=== PATIENT | female | born 1955 | race African-American/Black ===

== ENCOUNTER → 2016-10-30 | Outpatient (CLI) | payer OTHER ==
--- NOTE | 2016-10-30 10:10 | US ---
EXAMINATION TYPE: US pelvic complete DATE OF EXAM: 10/30/2016 9:50 AM COMPARISON: No previous CLINICAL HISTORY: Post menopausal bleeding x 2 weeks, cramping, 1, para 2: twins. TECHNIQUE: Transvaginal (TV) and Transabdominal (TA) Date of LMP: 2010 EXAM MEASUREMENTS: Uterus: 10.0 x 7.3 x 5.9cm Endometrial Stripe: not seen Right Ovary: not seen Left Ovary: not seen TECHNOLOGIST IMPRESSION: 1. Uterus: Anteverted, bulky, heterogeneous with multiple hypoechoic lesions throughout with largest measuring 4.6 x 4.1 x 3.9cm 2. Endometrium: unable to visualize due to shadowing and distortion from uterine lesions 3. Right Ovary: not seen due to overlying bowel 4. Left Ovary: not seen due to overlying bowel 5. Bilateral Adnexa: wnl 6. Posterior cul-de-sac: wnl IMPRESSION: 1. Poorly visualized pelvic ultrasound. Endometrial stripe could not be measured. Uterus appears bulk y. The ovaries are not identified. 2. Uterine fibroids largest measuring 4 cm discussed above. Normal Values: Uterine Length: < 10cm Endometrium: Proliferative (Day 6 ? 14): 4 ? 6mm [place] (Day 15 ? 28): 7 ? 14mm Post Menopausal (and not symptomatic): up to 8mm Post Menopausal (with vaginal bleeding): upper limits <5mm Post Menopausal with HRT: upper limits 8 - 15mm Post Menopausal with tamoxifen: < 6mm (although 50% of those receiving tamoxifen have been reported t o have thickness >8mm)
== END | disposition home or self-care (01) ==
LOC: RADUSWWP 09:28
PROVIDERS: ATTEND Family Medicine
DX: D25.9 Leiomyoma of uterus, unspecified (principal); N93.9 Abnormal uterine and vaginal bleeding, unspecified
CPT/HCPCS: 76830; 76856

== ENCOUNTER 2017-03-14 07:32 | Day surgery (SDC) | payer OTHER ==
--- NOTE | 2017-03-07 21:14 | P.GSHP ---
History of Present Illness H&P Date: 03/07/17 Chief Complaint: Chronic cholecystitis Patient presents to the office with complaints of right upper quadrant pain. She has had intermittent attacks been increasing in severity. She had an ultrasound performed showing a 1.5 cm gallstone. Pain is primarily right- sided. She does have nausea and vomiting. She is taking [place] for the pain currently. Pain is occurring almost daily. She is also concerned about a possible upper abdominal wall hernia. No change in the color of her skin urine or stool. Recent labs show normal liver enzymes. Past Medical History Past Medical History: Asthma, Liver Disease, Vascular Disorder Additional Past Medical History / Comment(s): Hepatitis C History of Any Multi-Drug Resistant Organisms: None Reported Past Surgical History: Ear Surgery, Tonsillectomy, Tubal Ligation Additional Past Surgical History / Comment(s): reconstructive surgery right ear. Cone biopsy. Barbara anal fistula repaired. Past Anesthesia/Blood Transfusion Reactions: Previous Problems w/ Anesthesia Additional Past Anesthesia/Blood Transfusion Reaction / Comment(s): Cardiac arrest during surgery. States allergic to anesthesia Past Psychological History: No Psychological Hx Reported Smoking Status: Former smoker Past Alcohol Use History: Abuse Additional Past Alcohol Use History / Comment(s): states stopped drinkng age 45. Past Drug Use History: Heroin Additional Drug Use History / Comment(s): states stopped using age 26 - Past Family History Mother Family Medical History: Congestive Heart Failure (CHF), Diabetes Mellitus Additional Family Medical History / Comment(s): states of CHF age 74 Father Family Medical History: Diabetes Mellitus Additional Family Medical History / Comment(s): age 45 cause unknown to patient. Medications and Allergies Home Medications Medication Instructions Recorded Confirmed Type Albuterol Sulfate [Proair 2 puff PO Q4HR PRN 11/08/16 11/22/16 History Respiclick] Ibuprofen [Motrin] 600 mg PO Q8HR 11/08/16 11/22/16 History Loratadine [Claritin] 10 mg PO DAILY 11/08/16 11/22/16 History Allergies Allergy/AdvReac Type Severity Reaction Status Date / Time iodine Allergy Rash/Hives Verified 11/22/16 11:36 Latex, Natural Rubber Allergy Itching Verified 11/22/16 11:36 shellfish derived Allergy Rash/Hives Verified 11/22/16 11:36 anesthesia AdvReac Unknown Uncoded 11/22/16 11:36 Surgical - Exam GENERAL: Well-developed, well-nourished HEENT: Normocephalic, sclera nonicteric, EOM intact, no swelling CHEST: No deformities ABDOMEN: Soft, nontender, nondistended, Questionable soft fleshy mass in the upper midabdomen possible lipoma versus hernia EXTREMITIES: No deformities, motor grossly intact NEURO: Awake and alert Assessment and Plan (1) Chronic cholecystitis Narrative/Plan: We'll proceed with laparoscopic cholecystectomy on 03/14. The risks of bleeding , infection, bile duct injury, biloma formation, bowel injury, retained common bile duct stone, and conversion to an open procedure were discussed. She understands and wishes to proceed. Status: Acute
[2017-03-11 10:50] VITALS: BMI 32.8
[~2017-03-14 07:32] MED LIST: LACTATED RINGERS 1,000 ML IV SCH
[2017-03-14 09:16] VITALS: TEMP 98.7
[2017-03-14] MEDS ORDERED: LIDOCAINE 1% INJ 10MG/ML (20 ML MDV) ONE (09:40)
[2017-03-14] MEDS ORDERED: fentaNYL (PF) 50 MCG/ML 2 ML AMP ONE (09:40)
[2017-03-14] MEDS ORDERED: PROPOFOL 10 MG/ML 20 ML VIAL IV ONE (09:40)
--- NOTE | 2017-03-14 09:43 | P.GSHP ---
History of Present Illness H&P Date: 03/14/17 Chief Complaint: Colon cancer screening Patient here today for colonoscopy. No bowel related complaints. She has a family history of colon cancer and an uncle. Has never had a colonoscopy. She did have a flexible sigmoidoscopy 25 years ago that was normal. Past Medical History Past Medical History: Asthma, Liver Disease, Vascular Disorder Additional Past Medical History / Comment(s): Hepatitis C,varicose veins, leg ulcers-healed,constipation History of Any Multi-Drug Resistant Organisms: None Reported Past Surgical History: Ear Surgery, Tonsillectomy, Tubal Ligation Additional Past Surgical History / Comment(s): reconstructive surgery right ear. Cone biopsy. Judd anal fistula repaired,vericose veins,D&C Past Anesthesia/Blood Transfusion Reactions: Previous Problems w/ Anesthesia Additional Past Anesthesia/Blood Transfusion Reaction / Comment(s): states "heart stopped during judd anal fistula repair, States was told by Anesthesiologist may have been an reaction to anesthesia" Past Psychological History: No Psychological Hx Reported Smoking Status: Former smoker Past Alcohol Use History: Abuse Additional Past Alcohol Use History / Comment(s): states stopped drinkng age 45.quit smoking Jun-smoked approx 33 yrs <1ppd Past Drug Use History: Heroin Additional Drug Use History / Comment(s): states stopped using age 26 - Past Family History Mother Family Medical History: Congestive Heart Failure (CHF), Diabetes Mellitus Additional Family Medical History / Comment(s): states of CHF age 74 Father Family Medical History: Diabetes Mellitus Additional Family Medical History / Comment(s): age 45 cause unknown to patient. Medications and Allergies Home Medications Medication Instructions Recorded Confirmed Type Albuterol Sulfate [Proair 2 puff PO Q4HR PRN 11/08/16 03/14/17 History Respiclick] Ibuprofen [Motrin] 600 mg PO Q8HR 11/08/16 03/11/17 History Allergies Allergy/AdvReac Type Severity Reaction Status Date / Time apricot Allergy lips Verified 03/14/17 09:11 turned dark purple and rash in throat Fish Containing Products Allergy lips Verified 03/14/17 09:11 turned dark purple and rash throat iodine Allergy lips Verified 03/14/17 09:11 turned dark purple and rash in throat Latex, Natural Rubber Allergy Itching Verified 03/14/17 09:11 perfume Allergy Rash/Hives Verified 03/14/17 09:11 petrolatum,white Allergy Rash/Hives Verified 03/14/17 09:11 [From Petroleum Jelly] shellfish derived Allergy lips Verified 03/14/17 09:11 turned dark purple and rash in throat detergents Allergy Rash/Hives Uncoded 03/14/17 09:[address]"heart Uncoded 03/14/17 09:11 stopped with anesthesia one time poss Rx per " Surgical - Exam Vital Signs Temp Pulse Resp BP Pulse Ox 98.7 F 88 15 199/101 98 03/14/17 09:14 03/14/17 09:14 03/14/17 09:14 03/14/17 09:14 03/14/17 09:14 Physical exam: General: Well-developed, well-nourished HEENT: Normocephalic, sclerae nonicteric Abdomen: Nontender, nondistended Extremities: No edema Neuro: Alert and oriented Assessment and Plan (1) Colon cancer screening Narrative/Plan: Will proceed with colonoscopy at this time. Status: Acute
--- NOTE | 2017-03-14 10:00 | P.PCN ---
Date of Procedure: 03/14/17 Preoperative Diagnosis: Postoperative Diagnosis: Procedure(s) Performed: PREOPERATIVE DIAGNOSIS: Colon cancer screening POSTOPERATIVE DIAGNOSIS: Normal exam PROCEDURE: Colonoscopy ANESTHESIA: MAC SURGEON: Eliseo Matt M.D. SPECIMENS: None ENDOSCOPIC PROCEDURE: The patient was placed on the endoscopy table in the left decubitus position. The Olympus colonoscope was inserted into the anus and passed under direct visualization to the base of the cecum. The appendiceal orifice was visualized. From that point the scope was slowly withdrawn inspecting all surfaces carefully. There were no neoplastic inflammatory or polypoid lesions throughout the cecum, ascending, transverse, descending, sigmoid and rectum. There was no diverticulosis noted. Digital rectal examination was normal. The patient was taken to the recovery room in stable condition per anesthesia guidelines. RECOMMENDATIONS: Increase fiber. Follow-up colonoscopy in 10 years. Implants: Indications for Procedure: Operative Findings: Description of Procedure:
[2017-03-14 10:07] VITALS: RESP 20
[2017-03-14 10:55] VITALS: PULSE 69
[2017-03-14 10:57] VITALS: BP 181/79
== END 2017-03-14 11:52 | disposition home or self-care (01) ==
LOC: ORWHC2ENDO 07:32
PROVIDERS: ATTEND Surgery
DX: Z12.11 Encounter for screening for malignant neoplasm of colon (principal); Z80.0 Family history of malignant neoplasm of digestive organs; I10 Essential (primary) hypertension; J45.909 Unspecified asthma, uncomplicated; J44.9 Chronic obstructive pulmonary disease, unspecified; B19.20 Unspecified viral hepatitis C without hepatic coma; Z87.891 Personal history of nicotine dependence; Z91.040 Latex allergy status; Z79.1 Long term (current) use of non-steroidal anti-inflammatories (NSAID)
CPT/HCPCS: J2001; J3010; J2704; G0121; 45380

== ENCOUNTER → 2017-07-09 | Outpatient (CLI) | payer OTHER ==
--- NOTE | 2017-07-09 09:49 | USB ---
Reason for exam: follow-up at short interval from prior study. History: Patient is postmenopausal. Physical Findings: Nurse Summary: bilateral soft, nodular, moveable tissue (nurse ts). US Breast RT Right breast ultrasound includes all four quadrants, the retroareolar region and axilla. Finding demonstrates a 0.9 x 1.3 x 0.6cm solid node at the posterior nipple is stable. These results were verbally communicated with the patient and result sheet given to the patient on 07/09/17. ASSESSMENT: Benign, BI-RAD 2 RECOMMENDATION: Routine screening mammogram of both breasts in 2 months. Back on schedule for August 2017.
== END | disposition home or self-care (01) ==
LOC: RADUSWWP 08:30
PROVIDERS: ATTEND Family Medicine
DX: N63 Unspecified lump in breast (principal); R22.31 Localized swelling, mass and lump, right upper limb

== ENCOUNTER → 2017-11-03 | Outpatient (CLI) | payer OTHER ==
--- NOTE | 2017-11-04 09:18 | MM ---
Reason for exam: screening (asymptomatic). Last mammogram was performed 1 year and 2 months ago. History: Patient is postmenopausal. Physical Findings: A clinical breast exam by your physician is recommended on an annual basis and results should be correlated with mammographic findings. MG Screening Mammo w CAD Bilateral CC and MLO view(s) were taken. Prior study comparison: August 29, 2016, bilateral MG diagnostic mammo w CAD PRISCILLA. There are scattered fibroglandular densities. There is no discrete abnormality including area of concern. ASSESSMENT: Negative, BI-RAD 1 RECOMMENDATION: Routine screening mammogram of both breasts in 1 year.
== END | disposition home or self-care (01) ==
LOC: RADMAMWWP 09:58
PROVIDERS: ATTEND Family Medicine
DX: Z12.31 Encounter for screening mammogram for malignant neoplasm of breast (principal)
CPT/HCPCS: 77067

== ENCOUNTER → 2018-12-01 | Outpatient (CLI) | payer MEDICARE, OTHER ==
--- NOTE | 2018-12-01 10:53 | US ---
EXAMINATION TYPE: US duplex aorta DATE OF EXAM: 12/01/2018 COMPARISON: NONE CLINICAL HISTORY: 63-year-old female I10 hypertension, Z13.6 Encounter for screening for AAA. Patient stated taking antihypertensive medication TECHNIQUE: Multiple sonographic images of the abdominal aorta are obtained. FINDINGS: EXAM MEASUREMENTS: Abdominal Aorta: Proximal: 2.4cm A/P sagittal Mid: 2.0cm A/P Distal: 1.8cm Transverse Bifurcation: Right PETER = 1.2cm Transverse; Left PETER = 1.2cm Transverse Grants Director notes: US exam is technically limited by overlying bowel gas. IMPRESSION: Some limitation due to overlying bowel gas. No evidence for AAA.
== END | disposition home or self-care (01) ==
LOC: RADUSWWP 08:39
PROVIDERS: ATTEND Nurse Practitioner Family
DX: Z13.6 Encounter for screening for cardiovascular disorders (principal); I10 Essential (primary) hypertension
CPT/HCPCS: 93979

== ENCOUNTER → 2018-12-16 | Outpatient (CLI) | payer MEDICARE, OTHER ==
--- NOTE | 2018-12-17 09:25 | MM ---
Reason for exam: screening (asymptomatic). Last mammogram was performed 1 year and 1 month ago. History: Patient is postmenopausal. Physical Findings: A clinical breast exam by your physician is recommended on an annual basis and results should be correlated with mammographic findings. MG 3D Screening Mammo W/Cad Bilateral CC and MLO view(s) were taken. Prior study comparison: November 03, 2017, bilateral MG screening mammo w CAD. August 29, 2016, bilateral MG diagnostic mammo w CAD PRISCILLA. The breast tissue is heterogeneously dense. This may lower the sensitivity of mammography. No significant changes when compared with prior studies. ASSESSMENT: Negative, BI-RAD 1 RECOMMENDATION: Routine screening mammogram of both breasts in 1 year.
== END | disposition home or self-care (01) ==
LOC: RADMAMWWP 09:22
PROVIDERS: ATTEND Family Medicine
DX: Z12.31 Encounter for screening mammogram for malignant neoplasm of breast (principal)
CPT/HCPCS: 77063; 77067

== ENCOUNTER → 2019-11-17 | Outpatient (CLI) | payer MEDICARE, OTHER ==
--- NOTE | 2019-11-17 14:48 | US ---
EXAMINATION TYPE: US thyroid st tissue head/neck DATE OF EXAM: 11/17/2019 COMPARISON: NONE CLINICAL HISTORY: E04.1 thyroid nodule. No thyroid meds. This is first thyroid ultrasound GLAND SIZE: Right Lobe: 4.5 x 1.7 x 1.6 cm Overall Parenchyma: homogenous Left Lobe: 4.2 x 1.6 x 1.5 cm Overall Parenchyma: homogeneous Isthmus Thickness: 0.3 cm NODULES RIGHT: # of nodules measured on right: 1 1. 0.8 X 0.7 x 0.5 cm mixed nodule at the mid pole with well-defined margins. This nodule is wider than tall and shows intranodular vascularity. Prior size: No prior LEFT: # of nodules measured on left: 1 1. 1.3 X 0.9 x 0.7 cm mixed nodule at the mid pole with well-defined margins. This nodule is wider than tall and shows intranodular vascularity. Prior size: No prior ISTHMUS: # of nodules measured in the isthmus: 0 Bilateral neck scanned, no evidence of lymphadenopathy. IMPRESSION: Bilateral thyroid nodules are seen in the mildly enlarged thyroid gland. The largest on t he left measures 1.3 cm. This is TIRADS 3: Mildly suspicious. FNA if ?2.5 cm Follow if ?1.5 cm (at 1, 3, 5 years)
== END | disposition home or self-care (01) ==
LOC: RADUSWWP 14:12
PROVIDERS: ATTEND Otolaryngology
DX: E04.2 Nontoxic multinodular goiter (principal)
CPT/HCPCS: 76536

== ENCOUNTER → 2020-04-14 | Outpatient (CLI) | payer MEDICARE, OTHER ==
--- NOTE | 2020-04-17 10:31 | MM ---
Reason for exam: screening (asymptomatic). Last mammogram was performed 1 year and 4 months ago. History: Patient is postmenopausal. Physical Findings: A clinical breast exam by your physician is recommended on an annual basis and results should be correlated with mammographic findings. MG Screening Mammo w CAD Bilateral CC and MLO view(s) were taken. Prior study comparison: December 16, 2018, bilateral MG 3d screening mammo w/cad. November 03, 2017, bilateral MG screening mammo w CAD. The breast tissue is heterogeneously dense. This may lower the sensitivity of mammography. No significant changes when compared with prior studies. ASSESSMENT: Benign, BI-RAD 2 RECOMMENDATION: Routine screening mammogram of both breasts in 1 year.
== END | disposition home or self-care (01) ==
LOC: RADMAMWWP 09:29
PROVIDERS: ATTEND Family Medicine
DX: Z12.31 Encounter for screening mammogram for malignant neoplasm of breast (principal)
CPT/HCPCS: 77067

== ENCOUNTER → 2020-06-13 | Outpatient (CLI) | payer MEDICARE, OTHER ==
--- NOTE | 2020-06-13 11:05 | US ---
EXAMINATION TYPE: US thyroid st tissue head/neck DATE OF EXAM: 06/13/2020 COMPARISON: us CLINICAL HISTORY: E04.1 thyroid nodule. F/U nodule GLAND SIZE: Right Lobe: 4.3 x 1.3 x 1.6 cm Overall Parenchyma: homogenous Left Lobe: 4.5 x 1.2 x 1.7 cm Overall Parenchyma: homogeneous Isthmus Thickness: 0.4 cm NODULES RIGHT: # of nodules measured on right: 1 1. 0.9 X 0.4 x 0.7 cm hypoechoic mixed nodule at the mid pole with well-defined margins; This nodul e is wider than tall and shows intranodular vascularity. Prior size: 0.8 x 0.5 x 0.7 cm LEFT: # of nodules measured on left: 2 1. 1.4 X 1.0 x 0.6 cm hypoechoic mixed nodule at the mid pole with well-defined margins; This nodu le is wider than tall and shows intranodular vascularity. Prior size: 1.3 x 0.9 x 0.7 cm 2. 0.6 X 0.3 x 0.4 cm isoechoic solid nodule at the mid pole with well-defined margins; This nodule is wider than tall and shows no intranodular vascularity. Prior size: not visualized on prior Bilateral neck scanned, no evidence of lymphadenopathy. Stable nodules with one new sub-centimeter no dule on left. IMPRESSION: Nonspecific thyroid nodularity as discussed above.
== END | disposition home or self-care (01) ==
LOC: RADUSWWP 09:46
PROVIDERS: ATTEND Otolaryngology
DX: E04.1 Nontoxic single thyroid nodule (principal); Z91.040 Latex allergy status; Z91.041 Radiographic dye allergy status
CPT/HCPCS: 76536

== ENCOUNTER → 2020-12-18 | Outpatient (CLI) | payer MEDICARE, OTHER ==
--- NOTE | 2020-12-18 16:22 | US ---
EXAMINATION TYPE: US thyroid st tissue head/neck DATE OF EXAM: 12/18/2020 COMPARISON: NONE CLINICAL HISTORY: 65-year-old female E04.1 thyroid nodule. Follow up TECHNIQUE: Multiple sonographic images of the thyroid gland are obtained. FINDINGS: GLAND SIZE: Right Lobe: 4.2 x 1.5 x 1.7 cm Overall Parenchyma: homogenous Left Lobe: 4.3 x 1.6 x 1.6 cm Overall Parenchyma: homogeneous Isthmus Thickness: 0.4 cm NODULES RIGHT: # of nodules measured on right: 1 1. 0.7 X 0.8 x 0.4 cm mixed cystic and solid nodule, which is wider than tall, with smooth margins, with echogenic foci. Prior size: 0.9 x 0.4 x 0.7 cm LEFT: # of nodules measured on left: 1 1. 1.3 X 0.9 x 0.7 cm mixed cystic and solid nodule, which is wider than tall, with smooth margins, without echogenic foci. Prior size: 1.4 x 1.0 x 0.6 cm ISTHMUS: # of nodules measured in the isthmus: 0 Bilateral neck scanned, no evidence of lymphadenopathy. IMPRESSION: Stable mixed nodules, one on each side measuring 8 mm on the right and 1.3 cm on the left.
== END ==
LOC: RADUSWWP 12:31
PROVIDERS: ATTEND Otolaryngology
DX: E04.2 Nontoxic multinodular goiter (principal)
CPT/HCPCS: 76536

== ENCOUNTER → 2021-06-07 | Outpatient (CLI) | payer MEDICARE, OTHER ==
--- NOTE | 2021-06-11 09:30 | MM ---
Reason for exam: screening (asymptomatic). Last mammogram was performed 1 year and 2 months ago. History: Patient is postmenopausal. Took hormonal contraceptives for 6 months. Physical Findings: A clinical breast exam by your physician is recommended on an annual basis and results should be correlated with mammographic findings. MG 3D Screening Mammo W/Cad Bilateral CC and MLO view(s) were taken. Prior study comparison: April 14, 2020, bilateral MG screening mammo w CAD. December 16, 2018, bilateral MG 3d screening mammo w/cad. The breast tissue is heterogeneously dense. This may lower the sensitivity of mammography. No significant changes when compared with prior studies. ASSESSMENT: Negative, BI-RAD 1 RECOMMENDATION: Routine screening mammogram of both breasts in 1 year.
== END | disposition home or self-care (01) ==
LOC: RADMAMWWP 08:42
PROVIDERS: ATTEND Family Medicine
DX: Z12.31 Encounter for screening mammogram for malignant neoplasm of breast (principal); Z78.0 Asymptomatic menopausal state
CPT/HCPCS: 77063; 77067

== ENCOUNTER → 2021-12-25 | Outpatient (CLI) | payer MEDICARE, OTHER ==
--- NOTE | 2021-12-25 19:06 | US ---
EXAMINATION TYPE: US thyroid st tissue head/neck DATE OF EXAM: 12/25/2021 COMPARISON: 12/18/2020 CLINICAL HISTORY: 66-year-old female E04.1 THYROID NODULE. Followup TECHNIQUE: Multiple sonographic images of the thyroid gland are obtained. FINDINGS: GLAND SIZE: Right Lobe: 4.5 x 1.6 x 1.5 cm Overall Parenchyma: homogeneous Left Lobe: 4.4 x 1.9 x 1.4 cm Overall Parenchyma: homogeneous Isthmus Thickness: 0.4 cm NODULES RIGHT: # of nodules measured on right: 1 largest with 2 very small ones seen lower pole 1. 0.9 X 0.8 x 0.5 cm, mid pole, mixed cystic and solid, but primarily solid TR 5 hypoechoic nodule , which is wider than tall, with smooth margins, with echogenic wall foci. Prior size: 0.7 x 0.8 x 0.4 cm LEFT: # of nodules measured on left: 2 1. 0.4 X 0.5 x 0.3 cm, upper pole, cyst. Prior size: not previously seen 2. 1.4 X 1.1 x 0.7 cm, mid pole, mixed cystic and solid, hypoechoic TR3 nodule, which is wider millie n tall, with smooth margins, without echogenic foci. Prior size: 1.3 x 0.9 x 0.7 cm ISTHMUS: # of nodules measured in the isthmus: 0 Bilateral neck scanned: no evidence of lymphadenopathy. IMPRESSION: 1. Punctate calcifications within a primarily solid 9 mm nodule in the right lobe. This suggests a TR 5 nodule. Previously measured 7 mm. Continue to follow and FNA if it reaches 1 cm. 2. A 1.4 x 1.1 cm TR3 nodule in the left lobe previously measured 1.3 x 0.9 cm. Continue to follow an d FNA if it reaches 2.5 cm.
== END | disposition home or self-care (01) ==
LOC: RADUSWWP 13:14
PROVIDERS: ATTEND Otolaryngology
DX: E04.2 Nontoxic multinodular goiter (principal)
CPT/HCPCS: 76536

== ENCOUNTER → 2022-02-19 | Outpatient (CLI) | payer MEDICARE, OTHER ==
--- NOTE | 2022-02-19 09:57 | US ---
EXAMINATION TYPE: US abdomen limited DATE OF EXAM: 02/19/2022 COMPARISON: NONE CLINICAL HISTORY: K42.9 UMBILICAL HERNIA WITHOUT OBSTRUCTION OR GANG. Palpable area felt on physical exam by physician, was tender for patient Hypoechoic area seen just under umbilicus that did move with valsalva but did not necessarily get [place]. Possible herniation versus other etiology Heterogeneous slightly hypoechoic roughly 2.0 cm of ill marginated area in the subcutaneous tissue ju st below the umbilicus may have some vascularity. No definitive break in the deeper rectus sheath. No concerning cystic mass or fluid collection seen on images saved. IMPRESSION: As above. Possible abnormal solid mass or lymph node versus suspected fat-containing umb ilical or paraumbilical hernia. Advise contrast enhanced CT follow-up to further evaluate and charact erize.
== END | disposition home or self-care (01) ==
LOC: RADUSWWP 08:43
PROVIDERS: ATTEND Family Medicine
DX: K42.9 Umbilical hernia without obstruction or gangrene (principal)
CPT/HCPCS: 76705

== ENCOUNTER → 2022-06-18 | Outpatient (CLI) | payer MEDICARE, OTHER ==
--- NOTE | 2022-06-18 09:06 | US ---
EXAMINATION TYPE: US thyroid st tissue head/neck DATE OF EXAM: 06/18/2022 COMPARISON: US 12/25/2021, 12/18/2020. CLINICAL HISTORY: E04.1 thyroid nodule. GLAND SIZE: Right Lobe: 5.2 x 1.5 x 1.5 cm Overall Parenchyma: homogenous Left Lobe: 4.9 x 1.4 x 1.7 cm Overall Parenchyma: homogeneous Isthmus Thickness: 0.2 cm NODULES RIGHT: # of nodules measured on right: 1 1. 0.9 X 0.4 x 0.7 cm, mid , mixed cystic and solid, hypoechoic nodule, which is wider than tall, w ith smooth margins, without echogenic foci. Previously demonstrated punctate focus is not visualized on today's exam. Prior size:0.9 X 0.8 x 0.5 cm LEFT: # of nodules measured on left: 2 1. 1.4 X 0.7 x 1.0 cm, mid, mixed cystic and solid, hypoechoic nodule, which is wider than tall, wi th smooth margins, without echogenic foci. Prior size:1.4 X 0.7 x 1.1 cm 2. 0.4 X 0.3 x 0.5 cm, mid, cystic or almost completely cystic, hypoechoic nodule, which is wider than tall, with smooth margins, without echogenic foci. Prior size:0.4 X 0.5 x 0.3 cm ISTHMUS: # of nodules measured in the isthmus: 0 Bilateral neck scanned, no evidence of lymphadenopathy. IMPRESSION: 1. Right thyroid lobe 0.9 cm TR-3 nodule is stable. Previously demonstrated echogenic focus is not v isualized. Follow-up ultrasound in one year is recommended. 2. Stable left thyroid lobe nodules with largest measuring up to 1.4 cm consistent with a TR-3 nodul e. Follow-up ultrasound in one year is recommended.
== END | disposition home or self-care (01) ==
LOC: RADUSWWP 08:09
PROVIDERS: ATTEND Otolaryngology
DX: E04.2 Nontoxic multinodular goiter (principal)
CPT/HCPCS: 76536

== ENCOUNTER → 2022-06-20 | Outpatient (CLI) | payer MEDICARE, OTHER ==
--- NOTE | 2022-06-21 10:12 | MM ---
Reason for Exam: Screening (asymptomatic). Last mammogram was performed 1 year(s) and 1 month(s) ago. Patient History: Menarche at age 10. First Full-Term at age 16. Postmenopausal. Hormonal Contraceptives for 6 months. Risk Values: Irma 5 year model risk: 1.2%. NCI Lifetime model risk: 4.0%. Prior Study Comparison: 12/16/2018 Bilateral Screening Mammogram, [facility]. 04/14/2020 Bilateral Screening Mammogram, [facility]. 06/07/2021 Bilateral Screening Mammogram, [facility]. Tissue Density: The breast tissue is heterogeneously dense. This may lower the sensitivity of mammography. Findings: Analyzed By CAD. No suspicious groups of microcalcifications, spiculated or lobular masses, architectural distortion or other secondary signs of malignancy are mammographically apparent. Overall Assessment: Benign, BI-RAD 2 Management: Screening Mammogram of both breasts in 1 year. A negative mammogram report should not preclude additional follow up of suspicious palpable abnormalities. Patient should continue monthly self breast exam. A clinical breast exam by your physician is recommended on an annual basis and results should be correlated with mammographic findings. Electronically signed and approved by: Uriel Sherwood D.O. Radiologis
== END | disposition home or self-care (01) ==
LOC: RADMAMWWP 14:42
PROVIDERS: ATTEND Family Medicine
DX: Z12.31 Encounter for screening mammogram for malignant neoplasm of breast (principal); Z78.0 Asymptomatic menopausal state
CPT/HCPCS: 77063; 77067

== ENCOUNTER → 2023-05-20 | Outpatient (CLI) | payer MEDICARE, OTHER ==
--- NOTE | 2023-05-20 14:45 | US ---
EXAMINATION TYPE: US thyroid st tissue head/neck DATE OF EXAM: 05/20/2023 COMPARISON: 06/18/2022 CLINICAL INDICATION: Female, 67 years old with history of E04.1 THYROID NODULE; F/U GLAND SIZE: Right Lobe: 4.3 x 1.4 x 1.2 cm Overall Parenchyma: homogenous Left Lobe: 3.7 x 1.5 x 1.8 cm Overall Parenchyma: homogeneous Isthmus Thickness: 0.2 cm NODULES RIGHT: # of nodules measured on right: 1 1. 0.9 X 0.5 x 0.6 cm, mid, mixed cystic and solid, hypoechoic TR 4 nodule, which is wider than maurice l, with smooth margins, without echogenic foci. Prior size: 0.9 x 0.4 x 0.7 cm LEFT: # of nodules measured on left: 1 1. 1.4 X 0.9 x 1.0 cm, mid, mixed cystic and solid, hypoechoic TR 4 nodule, which is wider than maurice l, with smooth margins, without echogenic foci. Prior size: 1.4 x 0.7 x 1.0 cm ISTHMUS: # of nodules measured in the isthmus: 0 Bilateral neck scanned, no evidence of lymphadenopathy. Stable nodules bilaterally. IMPRESSION: A stable TR4 nodule on either side measuring 9 mm on the right and 1.4 cm on the left. Ongoing follow -up can be considered.
== END | disposition home or self-care (01) ==
LOC: RADUSWWP 07:57
PROVIDERS: ATTEND Otolaryngology
DX: E04.1 Nontoxic single thyroid nodule (principal)
CPT/HCPCS: 76536

== ENCOUNTER → 2023-05-28 | Outpatient (CLI) | payer MEDICARE, OTHER ==
[2023-05-28 17:27] LABS: ALT 13 U/L (8-44); AST 23 U/L (13-35); Albumin 4.6 d/dL (3.8-4.9); Albumin/Globulin Ratio 1.21 Ratio (1.60-3.17); Alkaline Phosphatase 59 U/L (41-126); BUN/Creat Ratio 17.29 Ratio (12.00-20.00); Blood Urea Nitrogen 12.1 mg/dL (9.0-27.0); Calcium 10.1 mg/dL (8.7-10.3); Carbon Dioxide 27.5 mmol/L (21.6-31.8); Chloride 104 mmol/L (96-109); Globulin 3.8 d/dL (1.6-3.3); Glucose 96 mg/dL (70-110); Potassium 4.4 mmol/L (3.5-5.5); Sodium 142 mmol/L (135-145); Total Bilirubin 0.5 mg/dL (0.3-1.2); Total Protein 8.4 d/dL (6.2-8.2)
== END | disposition home or self-care (01) ==
LOC: LABWHC1 11:15
PROVIDERS: ATTEND Family Medicine
DX: R77.1 Abnormality of globulin (principal); R77.8 Other specified abnormalities of plasma proteins; R79.89 Other specified abnormal findings of blood chemistry
CPT/HCPCS: 36415; 80053; 84443

== ENCOUNTER → 2023-07-01 | Outpatient (CLI) | payer MEDICARE, OTHER ==
--- NOTE | 2023-07-02 08:25 | MM ---
Reason for Exam: Screening (asymptomatic). Last screening mammogram was performed 12 month(s) ago. Patient History: Menarche at age 10. First Full-Term at age 16. Postmenopausal. Hormonal Contraceptives for 6 months. Risk Values: Irma 5 year model risk: 1.2%. NCI Lifetime model risk: 3.9%. Prior Study Comparison: 04/14/2020 Bilateral Screening Mammogram, [facility]. 06/07/2021 Bilateral Screening Mammogram, [facility]. 06/20/2022 Bilateral MG 3D screening mammo w/cad, [facility]. Tissue Density: The breast tissue is heterogeneously dense. This may lower the sensitivity of mammography. Findings: Analyzed By CAD. There is no suspicious group of microcalcifications or new suspicious mass. Overall Assessment: Negative, BI-RAD 1 Management: Screening Mammogram of both breasts in [address] [facility] will attempt to contact patient to return for supplemental views and ultrasound if indicated. Patient should continue monthly self-breast exams. A clinical breast exam by your physician is recommended on an annual basis. This exam should not preclude additional follow-up of suspicious palpable abnormalities. Note on Irma scores and lifetime risk: 1. A Irma score greater than 3% is considered moderate risk. If this is the case, consider specialist referral to assess eligibility for a risk reducing agent. 2. If overall lifetime risk for the development of breast cancer is 20% or higher, the patient may qualify for future screening with alternating mammogram and breast MRI. Electronically signed and approved by: Eric Rivera DO
== END | disposition home or self-care (01) ==
LOC: RADMAMWWP 07:18
PROVIDERS: ATTEND Family Medicine
DX: Z12.31 Encounter for screening mammogram for malignant neoplasm of breast (principal); Z78.0 Asymptomatic menopausal state
CPT/HCPCS: 77063; 77067

== ENCOUNTER → 2024-07-14 | Outpatient (CLI) | payer MEDICARE ==
--- NOTE | 2024-07-18 14:25 | MM ---
Reason for Exam: Screening (asymptomatic). Last screening mammogram was performed 12 month(s) ago. Patient History: Menarche at age 10. First Full-Term at age 16. Postmenopausal. Hormonal Contraceptives for 6 months. Risk Values: Irma 5 year model risk: 1.7%. NCI Lifetime model risk: 4.8%. Prior Study Comparison: 06/07/2021 Bilateral Screening Mammogram, [facility]. 06/20/2022 Bilateral MG 3D screening mammo w/cad, [facility]. 07/01/2023 Bilateral MG 3D screening mammo w/cad, [facility]. Tissue Density: The breasts are heterogeneously dense, which may obscure small masses. Findings: Analyzed By CAD. The pattern is symmetrical. No significant interval change. No suspicious groups of microcalcifications, spiculated or lobular masses, architectural distortion or other secondary signs of malignancy are mammographically apparent. Overall Assessment: Benign, BI-RAD 2 Management: Screening Mammogram of both breasts in 1 year. A negative mammogram report should not preclude additional follow up of suspicious palpable abnormalities. Patient should continue monthly self breast exam. A clinical breast exam by your physician is recommended on an annual basis and results should be correlated with mammographic findings. Note on Irma scores and lifetime risk: 1. A Irma score greater than 3% is considered moderate risk. If this is the case, consider specialist referral to assess eligibility for a risk reducing agent. 2. If overall lifetime risk for the development of breast cancer is 20% or higher, the patient may qualify for future screening with alternating mammogram and breast MRI. [facility], , 07/18/2024 2:22 PM. Electronically signed and approved by: Uriel Sherwood D.O. Radiologis
== END | disposition home or self-care (01) ==
LOC: RADMAMWWP 13:12
PROVIDERS: ATTEND Family Medicine
DX: Z12.31 Encounter for screening mammogram for malignant neoplasm of breast
CPT/HCPCS: 77063; 77067

== ENCOUNTER → 2024-09-28 | Outpatient (CLI) | payer MEDICARE ==
--- NOTE | 2024-09-30 00:27 | US ---
EXAMINATION TYPE: US thyroid st tissue head/neck DATE OF EXAM: 09/28/2024 COMPARISON: US CLINICAL INDICATION: Female, 69 years old with history of E04.1 THYROID NODULE; F/U TECHNIQUE: Grayscale and color Doppler imaging of the thyroid gland. FINDINGS: GLAND SIZE: Right Lobe: 3.8 x 1.7 x 1.4 cm Overall Parenchyma: homogeneous Left Lobe: 4.0 x 1.5 x 1.7 cm Overall Parenchyma: homogeneous Isthmus Thickness: 0.3 cm NODULES RIGHT: # of nodules measured on right: 1 1. 1.0 X 0.6 x 0.8 cm, mid, mixed cystic and solid, hypoechoic nodule, which is wider than tall, wi th smooth margins, without echogenic foci. Prior size: 0.9 x 0.5 x 0.6 cm LEFT: # of nodules measured on left: 1 1. 0.7 X 0.5 x 0.5 cm, mid, solid or almost completely solid, hypoechoic nodule, which is wider millie n tall, with smooth margins, without echogenic foci. TR 4. Prior size: 1.4 x 0.9 x 1.0 cm ISTHMUS: # of nodules measured in the isthmus: 0 Bilateral neck scanned, no evidence of lymphadenopathy. Stable nodule right lobe, left nodule smaller in size. IMPRESSION: Diminished size of a moderately suspicious left thyroid lobe nodule. Follow-up 1 year recommended 2017 ACR TI-RADS LEVEL: TR-RADS 4 - Moderately Suspicious: Follow if > 1 cm, FNA if > 1.5 cm *Highest TI-RADS level nodule reported [email or web address] [facility], , 09/30/2024 12:24 AM
== END | disposition home or self-care (01) ==
LOC: RADUSWWP 16:31
PROVIDERS: ATTEND Family Medicine
DX: E04.1 Nontoxic single thyroid nodule (principal)
CPT/HCPCS: 76536